=== PATIENT | female | born 1980 | race Caucasian/White ===

== ENCOUNTER 2022-06-30 10:56 | Outpatient (CLI) | payer BC, SELFPAY ==
[2022-06-30 12:56] LABS: Iron* 113 ug/dL (37-170)
[2022-06-30 13:05] LABS: Percent Iron Saturation 33 % (20-50); Total Iron Binding Capacity 339 ug/dL (265-497)
== END 2022-06-30 10:57 | disposition home or self-care (01) ==
LOC: NFLDREF 10:56
PROVIDERS: PCP Internal Medicine; Visit Provider Internal Medicine
DX: D64.9 Anemia, unspecified (principal); J02.9 Acute pharyngitis, unspecified
CPT/HCPCS: 83540; 83550